=== PATIENT | female | born 1980 | race African-American/Black ===

== ENCOUNTER 2021-06-04 22:02 | Emergency (ER) | payer MEDICAID ==
[~2021-06-04] VITALS: Ht 167.6 cm; Wt 60.3 kg
[2021-06-04 22:02] VITALS: BP 138/90
== END 2021-06-05 02:18 | disposition left against medical advice (07) ==
LOC: ER 22:02
DX: M79.652 Pain in left thigh (principal); Z53.21 Procedure and treatment not carried out due to patient leaving prior to being seen by health care provider